=== PATIENT | female | born 1975 ===

== ENCOUNTER 2017-12-23 03:31 | Inpatient (IN) | payer MEDICAID ==
[2017-12-23] MEDS ORDERED: Sodium Chloride 0.9% 1,000 ML IV ONE (03:39)
--- NOTE | 2017-12-23 03:41 | C.PDOC ---
History Of Present Illness 42 year old female presents to the ED c/o sudden onset abdominal pain, mostly epigastric and RUQ. Patient states pain worsens with deep breathing, is associated with nausea and vomiting. Patient denies fever, chills, diarrhea, back pain. Chief Complaint (Nursing): Abdominal Pain History Per: Patient History/Exam Limitations: no limitations Onset/Duration Of Symptoms: Mins Current Symptoms Are (Timing): Still Present Severity: Moderate Location Of Pain/Discomfort: RUQ, Epigastric Radiation Of Pain To:: None Quality Of Discomfort: "Pain" Associated Symptoms: Nausea, Vomiting. denies: Fever, Chills, Diarrhea, Loss Of Appetite Exacerbating Factors: Deep Breaths Alleviating Factors: None Recent travel outside of the [place]: No Additional History Per: Patient Abnormal Vaginal Bleeding: No Past Medical History Reviewed: Historical Data, Nursing Documentation, Vital Signs Vital Signs: Last Vital Signs Temp 98.7 F 12/23/17 03:32 Pulse 98 H 12/23/17 03:32 Resp 18 12/23/17 03:32 BP 143/89 12/23/17 03:32 Pulse Ox 100 12/23/17 05:40 - Medical History PMH: No Chronic Diseases Surgical History: No Surg Hx Family History: States: Unknown Family Hx - Social History Hx Tobacco Use: No Hx Alcohol Use: No Hx Substance Use: No Review Of Systems Constitutional: Negative for: Fever, Chills Cardiovascular: Negative for: Chest Pain, Palpitations Respiratory: Negative for: Cough, Shortness of Breath Gastrointestinal: Positive for: Nausea, Vomiting, Abdominal Pain. Negative for : Diarrhea Genitourinary: Negative for: Dysuria, Hematuria Musculoskeletal: Negative for: Back Pain Skin: Negative for: Rash Physical Exam - Physical Exam Appears: Non-toxic, In Acute Distress (due to pain) Skin: Normal Color, Warm, Dry Head: Atraumatic, Normacephalic Eye(s): bilateral: Normal Inspection Oral Mucosa: Moist Neck: Normal ROM, Supple Chest: Symmetrical Cardiovascular: Rhythm Regular Respiratory: Normal Breath Sounds, No Rales, No Rhonchi, No Wheezing Gastrointestinal/Abdominal: Soft, Tenderness (RUQ and epigastrum), No Guarding, No Rebound Back: No CVA Tenderness Extremity: Normal ROM, No Tenderness, No Swelling Neurological/Psych: Oriented x3, Normal Speech Gait: Steady ED Course And Treatment - Laboratory Results Result Diagrams: 12/23/17 03:47 12/23/17 03:47 O2 Sat by Pulse Oximetry: 100 (ON RA) Pulse Ox Interpretation: Normal - CT Scan/US US abdomen Other Rad Studies (CT/US): Read By Radiologist, Radiology Report Reviewed CT/US Interpretation: EXAM: US Abdomen Limited, Right Upper Quadrant. CLINICAL HISTORY: 42 years old, female; Pain; Abdominal pain; Epigastric; Additional info : Ruq/. epigastric pain and tenderness. TECHNIQUE: Real-time ultrasound of the right upper quadrant with image documentation. COMPARISON: No relevant prior studies available. FINDINGS: Liver: Fatty infiltration of the liver. No intrahepatic bile duct dilation. Gallbladder: Stone in the decompressed gallbladder. Gallbladder wall appears prominent which may. be due to the decompressed state of the gallbladder. Common bile duct: Unremarkable as visualized. No stones. No dilation. Pancreas: Unremarkable as visualized. Right kidney: Unremarkable. No stones. No solid mass. No hydronephrosis. IMPRESSION: 1. Stone in the decompressed gallbladder. Gallbladder wall appears prominent which may be due to. the decompressed state of the gallbladder. Correlation with physical findings would be helpful to. exclude acute cholecystitis. 2. Fatty infiltration of the liver. Thank you for allowing us to participate in the care of your patient. Dictated and Authenticated by: Ottoniel Pierce MD. 12/23/2017 5:39 AM Eastern Time ([place] & [place]) Medical Decision Making Medical Decision Making: Plan: * Labs * Bentyl 20 mg IM * Pepcid 20 mg IVP * Reglan 10 mg IVP * IV fluids * UA * US abdomen Disposition Discussed With DrKerrie: Eli Ames Doctor Will See Patient In The: Hospital Counseled Patient/Family Regarding: Diagnosis - Disposition Disposition: HOSPITALIZED Disposition Time: 05:48 Condition: STABLE Forms: [facility] (Italian) - POA Present On Arrival: None - Clinical Impression Clinical Impression: Abdominal pain, Cholecystitis, acute - Scribe Statement The provider has reviewed the documentation as recorded by the Scribe Duncan Murphy All medical record entries made by the Scribe were at my direction and personally dictated by me. I have reviewed the chart and agree that the record accurately reflects my personal performance of the history, physical exam, medical decision making, and the department course for this patient. I have also personally directed, reviewed, and agree with the discharge instructions and disposition.
[2017-12-23 03:50] LABS: BASO % 0.2 % (0.0-2.0); EOS # 0.1 K/uL (0.0-0.7); EOS % 0.4 % (0.0-4.0); HEMOGLOBIN 13.9 g/dL (11.0-16.0); LYMPH # 1.2 K/uL (1.0-4.3); LYMPH % 9.1 % (20.0-40.0); MEAN CELL VOLUME 89.6 fL (81.0-99.0); MEAN CORPUSCULAR HEMOGLOBIN 30.8 pg (27.0-31.0); MEAN CORPUSCULAR HGB CONC 34.4 g/dL (33.0-37.0); MEAN PLATELET VOLUME 8.7 fL (7.2-11.7); MONO # 0.6 K/uL (0.0-0.8); NEUT # 10.9 K/uL (1.8-7.0); NEUT % 85.3 % (50.0-75.0); NRBC % 0.1 % (0.0-2.0); PLATELET COUNT 238 K/uL (130-400); RBC 4.51 Mil/uL (3.80-5.20); RED CELL DISTRIBUTION WIDTH 12.9 % (11.5-14.5); WHITE BLOOD COUNT 12.8 K/uL (4.8-10.8)
[2017-12-23 04:02] LABS: ALB/GLOB RATIO 1.3 (1.0-2.1); ALBUMIN 4.4 g/dL (3.5-5.0); ALT/SGPT 96 U/L (9-52); AST/SGOT 168 U/L (14-36); BLOOD UREA NITROGEN 16 mg/dL (7-17); CALCIUM 9.4 mg/dl (8.6-10.4); GFR NON-AFRICAN AMERICAN > 60; LIPASE 69 U/L (23-300)
[2017-12-23 04:40] LABS: SQUAMOUS EPITHIAL 7 /hpf (0-5); URINE BACTERIA RARE (<OCC); URINE BILIRUBIN NEGATIVE (NEGATIVE); URINE BLOOD NEGATIVE (NEGATIVE); URINE CLARITY Clear (Clear); URINE COLOR Yellow (YELLOW); URINE GLUCOSE (UA) NORMAL (Normal); URINE LEUKOCYTE ESTERASE NEG Leu/uL (Negative); URINE PROTEIN NEGATIVE (NEGATIVE); URINE UROBILINOGEN NORMAL mg/dL (0.2-1.0)
[2017-12-23 05:19] LABS: BANDS 2 % (0-2); LYMPHOCYTE 6 % (20-40); MONOCYTE 3 % (0-10); NEUTROPHIL 85 % (50-75); PLATELET ESTIMATE NORMAL (NORMAL); REACTIVE LYMPHOCYTES 4 % (0-0); TOTAL CELLS COUNTED 100; TOXIC GRANULATION PRESENT
[2017-12-23] MEDS ORDERED: metroNIDAZOLE IV 500 mg/100 ml 500 MG/100 ML BAG IVPB SCH (05:45)
[2017-12-23] MEDS ORDERED: Piperacillin/Tazobact 3.375 gm 100 ML IVPB STA (05:46)
[2017-12-23] MEDS ORDERED: Piperacillin/Tazobact 3.375 gm 100 ML IVPB ONE (05:56)
[2017-12-23] MEDS ORDERED: metroNIDAZOLE IV 500 mg/100 ml 500 MG/100 ML BAG ONE (05:57)
[2017-12-23] MEDS: Ciprofloxacin 400mg/200ml D5W 400 MG/200 ML BAG IVPB SCH ×2 (08:03→20:00)
[2017-12-23] MEDS: Lactated Ringer's 1,000 ML IV SCH ×2 (08:03→15:15)
--- NOTE | 2017-12-23 09:08 | US ---
Right upper quadrant abdominal ultrasound History: Right upper quadrant abdominal pain. Comparison: None available. Technique: Real-time sonography was performed through the right upper quadrant of the abdomen. Findings: Liver: 19.4 centimeters in length. Increased echogenicity of the hepatic parenchymal cortex suggestive for fatty infiltration versus hepatic parenchymal disease. Clinical correlation. Gallbladder: Cholelithiasis. Calculus measures up to 1.2 centimeters. Somewhat contracted gallbladder. Gallbladder wall appears prominent measuring up to 5 millimeters. Negative sonographic Rubio's sign. Mild prominence of the common bile duct measuring up to 5 millimeters. Limited visualization of the pancreas. Visualized aorta and IVC are preserved. Right kidney: 10.9 x 3.7 x 4.8 centimeters. No calculi or hydronephrosis. Impression: 1. Prominent liver measuring 19.4 centimeters in length. Increased echogenicity of the hepatic parenchymal cortex suggestive for fatty infiltration versus hepatic parenchymal disease. Clinical correlation. 2. Somewhat contracted gallbladder. Cholelithiasis. Gallbladder wall appears prominent measuring up to 5 millimeters. Negative sonographic Rubio's sign. Clinical correlation. If there is persistent concern for cholecystitis, consider repeat study and or correlation with nuclear medicine study. 3. Mild prominence of the common bile duct measuring up to 5 millimeters. Clinical correlation. 4. Limited visualization of the pancreas.
[2017-12-23] MEDS ORDERED: Lactated Ringer's 1,000 ML IV ONE ×3 (10:48→17:47)
--- NOTE | 2017-12-23 10:52 | CP.PCM.HP ---
<Markel Hargrove - Last Filed: 12/23/17 10:53> History of Present Illness - History of Present Illness History of Present Illness: Surgery: Dr. Ames CC: Abd Pain HPI: 42F w. no pmh presents to ED w. acute onset epigastric/RUQ pain. Pain started at 10PM last night after eating pizza. The pain is constant, described as pressure. Pt tried pepto-bismol without relief. Pt has never had this pain before. She reports N/V/D, non-bloody. Pt has no other complaints. LMP was 8/9 and described as normal. In ED pt was found to have, leukocytosis/transaminitis , and U/S findings concerning for cholecystitis. PMH: none PSH: x 3, breast augmentation, and abdominoplasty Meds: MAR reviewed ALL: PCN, ASA Social: No ETOH/tobacco/drugs Fhx: Non-contributory Present on Admission - Present on Admission Any Indicators Present on Admission: No Review of Systems - Review of Systems All systems: reviewed and no additional remarkable complaints except (HPI) Past Patient History - Past Social History Smoking Status: Never Smoked - PSYCHIATRIC Hx Substance Use: No - SURGICAL HISTORY Hx Surgeries: No Meds Allergies/Adverse Reactions: Allergies Allergy/AdvReac Type Severity Reaction Status Date / Time aspirin Allergy Verified 12/23/17 03:38 Penicillins Allergy Verified 12/23/17 03:38 Physical Exam - Constitutional Appears: Non-toxic, No Acute Distress - Head Exam Head Exam: ATRAUMATIC, NORMOCEPHALIC - Eye Exam Eye Exam: EOMI. absent: Scleral icterus - ENT Exam ENT Exam: Mucous Membranes Moist - Neck Exam Neck exam: Positive for: Full Rom - Respiratory Exam Respiratory Exam: NORMAL BREATHING PATTERN. absent: Accessory Muscle Use, Respiratory Distress - GI/Abdominal Exam GI & Abdominal Exam: Soft, Tenderness (epigastric/RUQ, +Rubio's). absent: Distended, Firm, Guarding, Rebound, Rigid - Extremities Exam Extremities exam: Negative for: calf tenderness, pedal edema - Neurological Exam Neurological exam: Alert, Oriented x3 - Psychiatric Exam Psychiatric exam: Normal Affect, Normal Mood - Skin Skin Exam: Dry, Warm Results - Vital Signs Recent Vital Signs: Last Vital Signs Temp 98.5 F 12/23/17 08:38 Pulse 86 12/23/17 08:38 Resp 20 12/23/17 08:38 BP 93/60 L 12/23/17 08:38 Pulse Ox 98 12/23/17 08:38 - Labs Result Diagrams: 12/23/17 03:47 12/23/17 03:47 Labs: Laboratory Results - last 24 hr 12/23/17 12/23/17 12/23/17 03:47 03:47 04:34 WBC 12.8 H RBC 4.51 Hgb 13.9 Hct 40.4 MCV 89.6 MCH 30.8 MCHC 34.4 RDW 12.9 Plt Count 238 MPV 8.7 Neut % (Auto) 85.3 H Lymph % (Auto) 9.1 L [place] % (Auto) 5.0 Eos % (Auto) 0.4 Baso % (Auto) 0.2 Neut # (Auto) 10.9 H Lymph # (Auto) 1.2 [place] # (Auto) 0.6 Eos # (Auto) 0.1 Baso # (Auto) 0.0 Neutrophils % (Manual) 85 H Band Neutrophils % 2 Lymphocytes % (Manual) 6 L Reactive Lymphs % 4 H Monocytes % (Manual) 3 Toxic Granulation Present Platelet Estimate Normal RBC Morphology Normal Sodium 145 Potassium 3.6 Chloride 104 Carbon Dioxide 26 Anion Gap 18 BUN 16 Creatinine 0.5 L Est GFR ( Amer) > 60 Est GFR (Non-Af Amer) > 60 Random Glucose 120 H Calcium 9.4 Total Bilirubin 1.4 H AST 168 H ALT 96 H Alkaline Phosphatase 94 Total Protein 7.8 Albumin 4.4 Globulin 3.4 Albumin/Globulin Ratio 1.3 Lipase 69 Urine Color Yellow Urine Clarity Clear Urine pH 5.0 Ur Specific [place] 1.023 Urine Protein Negative Urine Glucose (UA) Normal Urine Ketones Negative Urine Blood Negative Urine Nitrate Negative Urine Bilirubin Negative Urine Urobilinogen Normal Ur Leukocyte Esterase Neg Urine WBC (Auto) 4 Urine RBC (Auto) 1 Ur Squamous Epith Cells 7 H Urine Bacteria Rare Urine HCG, Qual 12/23/17 04:34 WBC RBC Hgb Hct MCV MCH MCHC RDW Plt Count MPV Neut % (Auto) Lymph % (Auto) [place] % (Auto) Eos % (Auto) Baso % (Auto) Neut # (Auto) Lymph # (Auto) [place] # (Auto) Eos # (Auto) Baso # (Auto) Neutrophils % (Manual) Band Neutrophils % Lymphocytes % (Manual) Reactive Lymphs % Monocytes % (Manual) Toxic Granulation Platelet Estimate RBC Morphology Sodium Potassium Chloride Carbon Dioxide Anion Gap BUN Creatinine Est GFR ( Amer) Est GFR (Non-Af Amer) Random Glucose Calcium Total Bilirubin AST ALT Alkaline Phosphatase Total Protein Albumin Globulin Albumin/Globulin Ratio Lipase Urine Color Urine Clarity Urine pH Ur Specific [place] Urine Protein Urine Glucose (UA) Urine Ketones Urine Blood Urine Nitrate Urine Bilirubin Urine Urobilinogen Ur Leukocyte Esterase Urine WBC (Auto) Urine RBC (Auto) Ur Squamous Epith Cells Urine Bacteria Urine HCG, Qual Negative - Imaging and Cardiology US - abdomen Status: Image reviewed by me, Report reviewed by me Assessment & Plan - Assessment and Plan (Free Text) Assessment: 42F w. cholecystitis -OR this afternoon for lap julia, consent in chart, risks/benefits d/w pt -NPO -IVF -cipro/flagyl -pain meds/anti-emetics -SCDs -d/w attending Zemaitis PGY4 Decision To Admit - Pt Status Changed To: Hospital Disposition Of: Inpatient - Admit Certification Admit to Inpatient:: After my assessment, the patient will require hospitalization for at least two midnights. This is because of the severity of symptoms shown, intensity of services needed, and/or the medical risk in this patient being treated as an outpatient. - InPatient: Physician Admission Certification:: Yes - . Bed Request Type: Regular <Eli Ames - Last Filed: 12/24/17 15:51> Results - Vital Signs Recent Vital Signs: Last Vital Signs Temp 98 F 12/24/17 08:00 Pulse 85 12/24/17 08:00 Resp 20 12/24/17 08:00 BP 98/63 L 12/24/17 08:00 Pulse Ox 96 12/24/17 08:00 - Labs Result Diagrams: 12/24/17 08:50 12/24/17 08:50 Labs: Laboratory Results - last 24 hr 12/24/17 12/24/17 12/24/17 07:28 08:50 08:50 WBC 8.1 RBC 3.94 Hgb 12.3 Hct 35.5 MCV 90.0 MCH 31.2 H MCHC 34.7 RDW 13.2 Plt Count 207 MPV 8.9 Neut % (Auto) 61.8 Lymph % (Auto) 31.3 [place] % (Auto) 5.8 Eos % (Auto) 0.6 Baso % (Auto) 0.5 Neut # (Auto) 5.0 Lymph # (Auto) 2.5 [place] # (Auto) 0.5 Eos # (Auto) 0.1 Baso # (Auto) 0.0 Sodium 139 Potassium 3.9 Chloride 107 Carbon Dioxide 26 Anion Gap 11 BUN 5 L Creatinine 0.6 L Est GFR ( Amer) > 60 Est GFR (Non-Af Amer) > 60 POC Glucose (mg/dL) 78 Random Glucose 87 Calcium 8.6 Total Bilirubin 2.0 H AST 189 H ALT 362 H D Alkaline Phosphatase 85 Total Protein 6.1 L Albumin 3.4 L D Globulin 2.7 Albumin/Globulin Ratio 1.3 12/24/17 11:16 WBC RBC Hgb Hct MCV MCH MCHC RDW Plt Count MPV Neut % (Auto) Lymph % (Auto) [place] % (Auto) Eos % (Auto) Baso % (Auto) Neut # (Auto) Lymph # (Auto) [place] # (Auto) Eos # (Auto) Baso # (Auto) Sodium Potassium Chloride Carbon Dioxide Anion Gap BUN Creatinine Est GFR ( Amer) Est GFR (Non-Af Amer) POC Glucose (mg/dL) 93 Random Glucose Calcium Total Bilirubin AST ALT Alkaline Phosphatase Total Protein Albumin Globulin Albumin/Globulin Ratio Assessment & Plan - Assessment and Plan (Free Text) Plan: I personally saw and examined the patient with the resident staff and agree with the above assessment and plan. I personally reviewed the available diagnostic images and imaging reports. Acute cholecystitis with obstructing stone at neck/cystic duct 1.2cm. Risks and benefits of laparoscopic cholecystectomy discussed including, but not limited to bleeding, infection, bowel injury, bile leak, bile duct injury, and VTE. All the patients questions were answered. She understands these risks and Informed consent was signed. - Date & Time Date: 12/23/17 Time: 13:15
[2017-12-23] MEDS: metroNIDAZOLE IV 500 mg/100 ml 500 MG/100 ML BAG IVPB SCH ×2 (11:22→19:35)
[2017-12-23] MEDS ORDERED: Lidocaine Hydrochloride 10 ML INJ ONE (13:57)
[2017-12-23] MEDS ORDERED: Iohexol 240 (50 ml) ONE (13:57)
[2017-12-23] MEDS ORDERED: Bupivacaine 0.25% 20 ML INJ IJ ONE (13:57)
[2017-12-23] MEDS ORDERED: Midazolam 2 MG/2 ML VIAL ONE (14:01)
[2017-12-23] MEDS ORDERED: Propofol 10 mg/ml Inj (20 ML) ONE (14:01)
[2017-12-23] MEDS ORDERED: Rocuronium 10 mg/ml (5 ml) ONE ×2 (14:03→14:30)
[2017-12-23] MEDS ORDERED: Neostigmine Methylsulfate 3mg/3ml Syringe IV ONE (15:09)
--- NOTE | 2017-12-23 16:09 | PCM.SURG1 ---
Surgeon's Initial Post Op Note - Surgeon's Notes Surgeon: Dr. Ames [facility] Aide: Dr. Colunga PGY-4 Type of Anesthesia: General Endo, Local Pre-Operative Diagnosis: Acute cholecystitis Operative Findings: cholelithiasis Post-Operative Diagnosis: Acute cholecystitis Operation Performed: Laparoscopic cholecystectomy Specimen/Specimens Removed: gallbladder Estimated Blood Loss: EBL {In ML}: 10 Blood Products Given: N/A Drains Used: No Drains Post-Op Condition: Fair Date of Surgery/Procedure: 12/23/17 Time of Surgery/Procedure: 16:09
[2017-12-23] MEDS: HYDROmorphone 0.5 mg/0.5 ml ISec IVP PRN ×3 (16:23→22:06)
[2017-12-23 19:28] VITALS: RESP 20
[2017-12-24] MEDS: metroNIDAZOLE IV 500 mg/100 ml 500 MG/100 ML BAG IVPB SCH ×4 (00:05→17:07)
[2017-12-24] MEDS: Lactated Ringer's 1,000 ML IV SCH ×2 (00:08→06:22)
[2017-12-24] MEDS: HYDROmorphone 0.5 mg/0.5 ml ISec IVP PRN ×2 (05:31→10:07)
[2017-12-24] MEDS ORDERED: Potassium Ch 20mEq in D5-1/2NS 1,000 ML IV SCH (08:45)
[2017-12-24] MEDS: Ciprofloxacin 400mg/200ml D5W 400 MG/200 ML BAG IVPB SCH ×2 (08:49→20:11)
[2017-12-24 08:58] LABS: BASO % 0.5 % (0.0-2.0); EOS # 0.1 K/uL (0.0-0.7); EOS % 0.6 % (0.0-4.0); HEMOGLOBIN 12.3 g/dL (11.0-16.0); LYMPH # 2.5 K/uL (1.0-4.3); LYMPH % 31.3 % (20.0-40.0); MEAN CORPUSCULAR HEMOGLOBIN 31.2 pg (27.0-31.0); MEAN CORPUSCULAR HGB CONC 34.7 g/dL (33.0-37.0); MEAN PLATELET VOLUME 8.9 fL (7.2-11.7); MONO # 0.5 K/uL (0.0-0.8); MONO % 5.8 % (0.0-10.0); NEUT % 61.8 % (50.0-75.0); NRBC % 0.1 % (0.0-2.0); RBC 3.94 Mil/uL (3.80-5.20); RED CELL DISTRIBUTION WIDTH 13.2 % (11.5-14.5); WHITE BLOOD COUNT 8.1 K/uL (4.8-10.8)
[2017-12-24 09:13] LABS: ALB/GLOB RATIO 1.3 (1.0-2.1); ALBUMIN 3.4 g/dL (3.5-5.0); ALT/SGPT 362 U/L (9-52); AST/SGOT 189 U/L (14-36); BLOOD UREA NITROGEN 5 mg/dL (7-17); CALCIUM 8.6 mg/dl (8.6-10.4); GFR NON-AFRICAN AMERICAN > 60
[2017-12-24] MEDS ORDERED: Gadodiamide 287 MG/ML VIAL (15ML) IV ONE (09:45)
--- NOTE | 2017-12-24 10:05 | CP.PCM.PN ---
Subjective - Date & Time of Evaluation Date of Evaluation: 12/24/17 Time of Evaluation: 07:00 - Subjective Subjective: GENERAL SURGERY PROGRESS NOTE FOR DR. CORTEZ Patient seen and examined at bedside. She reports a headache and that she is hungry. She feels nauseous but denies vomiting. Reports abdominal pain at incision sites. Pt is aware of plans for MRCP today. Objective - Vital Signs/Intake and Output Vital Signs (last 24 hours): Temp Pulse Resp BP Pulse Ox 98 F 85 20 98/63 L 96 12/24/17 08:00 12/24/17 08:00 12/24/17 08:00 12/24/17 08:00 12/24/17 08:00 Intake and Output: 12/24/17 12/24/17 06:59 18:59 Intake Total 1000 Balance 1000 - Medications Medications: Current Medications Acetaminophen (Tylenol 325mg Tab) 650 mg PO Q6 PRN PRN Reason: Headache Hydromorphone HCl (Dilaudid) 0.5 mg IVP Q4H PRN PRN Reason: Pain, moderate (4-7) Last Admin: 12/24/17 05:31 Dose: 0.5 mg Ciprofloxacin (Cipro 400mg/200ml Dsw) 400 mg in 200 mls @ 133 mls/hr IVPB Q12H SRINIVASAN PRN Reason: Protocol Last Admin: 12/24/17 08:49 Dose: 133 mls/hr Metronidazole (Flagyl) 500 mg in 100 mls @ 100 mls/hr IVPB Q6H SRINIVASAN PRN Reason: Protocol Last Admin: 12/24/17 05:10 Dose: 100 mls/hr Potassium Chloride/Dextrose/Sod Cl (Potassium Chl 20 Meq In D5-1/2ns) 1,000 mls @ 100 mls/hr IV .Q10H SRINIVASAN Ondansetron HCl (Zofran Inj) 4 mg IVP Q4H PRN PRN Reason: Nausea/Vomiting Last Admin: 12/23/17 18:12 Dose: 4 mg - Labs Labs: 12/24/17 08:50 12/24/17 08:50 - Constitutional Appears: Non-toxic, No Acute Distress - Head Exam Head Exam: ATRAUMATIC, NORMAL INSPECTION - Eye Exam Eye Exam: EOMI, Normal appearance - Respiratory Exam Respiratory Exam: NORMAL BREATHING PATTERN. absent: Respiratory Distress - Cardiovascular Exam Cardiovascular Exam: +S1, +S2 - GI/Abdominal Exam GI & Abdominal Exam: Soft, Tenderness (tender at incision sites). absent: Distended, Firm, Guarding, Rigid, Rebound Additional comments: Dermabond in place - Neurological Exam Neurological Exam: Alert, CN II-XII Intact, Oriented x3 - Psychiatric Exam Psychiatric exam: Normal Affect, Normal Mood - Skin Skin Exam: Dry, Warm Assessment and Plan - Assessment and Plan (Free Text) Assessment: 42yo F with cholecystitis, rule out choledocholithiasis s/p lap julia POD#1 - Continue NPO - Fluids switched to D5 1/2NS +20K - Added tylenol for WORLEY - Added Cepacol - MRCP this AM to evaluate for choledocholithiasis - Will need ERCP if stone found, Dr. Pastor on board - Discussed plan with Dr. Kwaku Colunga PGY-4
[2017-12-24] MEDS: Benzocaine/Menthol (Cepacol) Lozenge MT PRN (10:38)
--- NOTE | 2017-12-24 15:54 | PCM.OP ---
Operative Report - Operative Report Date of Surgery/Procedure: 12/23/17 Time of Surgery/Procedure: 14:00 Surgeon: Eli Ames md Cableman: Francine Colunga DO (PGY 4 resident) Anesthesia/Sedation: GETA; 1% lidocaine + 0.25% Marcaine mix local anesthesia Pre-Operative Diagnosis: Acute calculus cholecystitis Post-Operative Diagnosis: Acute calculus cholecystitis. Possible impacted gallstone at cytic duct/CBD junction Indication for Surgery: This is a 42-year-old female presented to ED with RUQ pain due acute onset the night before with nausea. RUQ US showed a gallstones and wall thickening, non-mobile obtructing stone in the gallbladder neck/cystic duct. Details of HPI in clinical chart. Taken to the operating room for laparoscopic cholecystectomy. Patient understands the risks and benefits of the procedure as documented in the clinic chart but specifically risk of cystic duct leak and common bile duct injury, need for open surgery and has consented to the procedure. Operative Findings: Inflamed dilated, Fluid filled gallbladder. Mildly dilated cystic duct. Critical view of safety acheived and prior to clipping or tansecting structures, an area of wall bulging in common bile duct abutting cytic duct juntion, soft but not compressible, concernicing for possible stone, immobile. Cholangiogram not performed due to degree of acute inflammation at CD and CBD juncton, with possible obstructing stone that would not be amenable to laparoscopic retrieval and would only perhaps dislodge stone distally in biliary tree. Patient will require post-op MRCP/ERCP to evaluate above bulging to rule out stone vs. tortuous ductal anatomy. Clips in place on cystic duct and cystic artery at end of case without evidence of bleeding or bile leak. Procedure/Operation Description: PROCEDURES PERFORMED: 1) Laparoscopic Cholecystectomy. . DESCRIPTION OF PROCEDURE: The patient was given a preoperative dose of Zosyn 20 minutes before the incision. SCD boots were placed for DVT prophylaxis. The patient had an orogastric tube placed in order to empty the stomach after the induction of general anesthesia. Upper and lower body warmer placed to maintain normothermia. Secure straps placed above and bleow the knees and footboard placed. Arms placed on arm boards out at 80 degress. All bony prominences were padded. A timeout was performed prior to incision. The abdomen was prepped and draped in sterile fashion. All skin incisions were made using an 11 blade scalpel after being pre-anesthetized with local anesthesia. In the infraaumbilical midline, a circumlinear incision was made and the umbilical raphe was identified and the fascia was divided between clamps at its base entering the abdomen in an open fashion. A 11-mm trocar was inserted in the abdomen and the abdomen was insufflated to 15 mmHg pressure with CO2. A 30-degree viewing scope was then inserted and the abdomen was generally inspected and there was not found to be any additional signs of pathology. In the right upper quadrant, two 5-mm ports were placed after the under direct vision and in the subxiphoid midline, an 11-mm radially dilating port was placed in the similar fashion. . There was significant inflammation in the right upper abdomen and a large dilated gallbladder fundus was identified beneath the liver edge. A laparoscopic aspiration needle was inserted into the fundus and used to aspirate 30cc of bilious fluid for decompression and allow grasping and retraction. The fundus of the gallbladder was then retracted to the right upper quadrant and the neck of the gallbladder was visualized. There were omental adhesions to the gallbladder that were taken down with a cominbation of sharp dissection and hook cautery. The peritoneal attachments from the lateral portion of the gallbladder/cystic duct junction were gently dissected and divided to open up the [place]. The [place] was then dissected up onto the liver bed posterior to the gallbladder in order to ensure that this was the cystic duct and not tenting of the common bile duct. The peritoneal attachments on the medial portion of the gallbladder going up to the side of the liver were taken and distal third of galbbladder dissected off the cystic plate. The critical view was obtained. The cystic artery and duct were sequentially then doubly clipped and ligated and the clips were inspected. . Once this was completed, the gallbladder was dissected free from the liver bed using electrocautery and placed this in an endo catch bag. This was withdrawn through the umbilical port. The abdomen was reinspected. The clips were in good position on the cystic artery and duct stumps and the abdomen was generally irrigated and drained. The ports were then removed from the abdomen and the abdomen was desufflated with air. The umbilical port was closed with [id number] 0- Vicryl suture, skin incisions closed with 4-0 Vicryl sutures, and finally dermabond applied to skin. The patient tolerated the procedure well and was extubated and stable in recovery after the procedure. . I was present throughout the entirety of the procedure. Sponge, needle and instrument counts were correct. Estimated Blood Loss: 10mL Complications: none Specimen: Gallbladder Discharge & Condition: above. Gallbladder specimen was opened on the back table and one small 8mm pgented stone found along with smaller microstones. The 1.2mm stone seen on pre-op US was not in the specimen. Because of this and the above intra-operative findings of bulging seen at the CD/CBD junction, the case was discussed with Dr. Pastor from GI to perform MRCP and possible ERCP to assess for impacted stone vs. tortuaous anatomy. MRCP to be done in am tomorrow and Dr. Pastor to see and advise further.
[2017-12-24] MEDS: Potassium Ch 20mEq in D5-1/2NS 1,000 ML IV SCH (18:53)
[2017-12-24 18:55] LABS: ALB/GLOB RATIO 1.3 (1.0-2.1); ALBUMIN 4.1 g/dL (3.5-5.0); ALT/SGPT 371 U/L (9-52); AST/SGOT 155 U/L (14-36); BLOOD UREA NITROGEN 6 mg/dL (7-17); CALCIUM 9.2 mg/dl (8.6-10.4); GFR NON-AFRICAN AMERICAN > 60
[2017-12-25] MEDS: metroNIDAZOLE IV 500 mg/100 ml 500 MG/100 ML BAG IVPB SCH ×2 (00:05→05:06)
[2017-12-25] MEDS: Benzocaine/Menthol (Cepacol) Lozenge MT PRN ×3 (00:09→05:59)
[2017-12-25 02:02] VITALS: BP 107/71; PULSE 83; TEMP 98.8; O2SAT 99
[2017-12-25] MEDS: Potassium Ch 20mEq in D5-1/2NS 1,000 ML IV SCH ×2 (03:00→10:42)
[2017-12-25] MEDS ORDERED: guaiFENesin 100 mg/5 ml Syrup UD PO STA (05:56)
[2017-12-25] MEDS: Ciprofloxacin 400mg/200ml D5W 400 MG/200 ML BAG IVPB SCH (08:12)
[2017-12-25 09:32] LABS: BASO % 0.4 % (0.0-2.0); EOS # 0.1 K/uL (0.0-0.7); EOS % 1.5 % (0.0-4.0); HEMOGLOBIN 12.4 g/dL (11.0-16.0); LYMPH # 2.5 K/uL (1.0-4.3); LYMPH % 29.1 % (20.0-40.0); MEAN CELL VOLUME 89.6 fL (81.0-99.0); MEAN CORPUSCULAR HEMOGLOBIN 30.7 pg (27.0-31.0); MEAN CORPUSCULAR HGB CONC 34.3 g/dL (33.0-37.0); MEAN PLATELET VOLUME 8.8 fL (7.2-11.7); MONO # 0.5 K/uL (0.0-0.8); MONO % 6.4 % (0.0-10.0); NEUT # 5.3 K/uL (1.8-7.0); NEUT % 62.6 % (50.0-75.0); RBC 4.04 Mil/uL (3.80-5.20); RED CELL DISTRIBUTION WIDTH 13.3 % (11.5-14.5); WHITE BLOOD COUNT 8.5 K/uL (4.8-10.8)
[2017-12-25 09:47] LABS: ALB/GLOB RATIO 1.2 (1.0-2.1); ALBUMIN 3.6 g/dL (3.5-5.0); ALT/SGPT 265 U/L (9-52); AST/SGOT 84 U/L (14-36); BLOOD UREA NITROGEN 4 mg/dL (7-17); CALCIUM 8.7 mg/dl (8.6-10.4); GFR NON-AFRICAN AMERICAN > 60
--- NOTE | 2017-12-25 15:00 | CP.PCM.DIS ---
Provider - Provider Date of Admission: 12/23/17 05:49 Attending physician: Eli Ames MD Consults: Dr. Pastor - GI Time Spent in preparation of Discharge (in minutes): 30 Diagnosis - Discharge Diagnosis (1) Cholecystitis, acute Status: Acute Hospital Course - Lab Results Lab Results: Micro Results 12/23/17 15:16 Blood Blood Culture - Preliminary NO GROWTH AFTER 24 HOURS 12/23/17 15:16 Blood Blood Culture - Preliminary NO GROWTH AFTER 24 HOURS Most Recent Lab Values WBC 8.5 K/uL (4.8-10.8) 12/25/17 09:19 RBC 4.04 Mil/uL (3.80-5.20) 12/25/17 09:19 Hgb 12.4 g/dL (11.0-16.0) 12/25/17 09:19 Hct 36.2 % (34.0-47.0) 12/25/17 09:19 MCV 89.6 fL (81.0-99.0) 12/25/17 09:19 MCH 30.7 pg (27.0-31.0) 12/25/17 09:19 MCHC 34.3 g/dL (33.0-37.0) 12/25/17 09:19 RDW 13.3 % (11.5-14.5) 12/25/17 09:19 Plt Count 226 K/uL (130-400) 12/25/17 09:19 MPV 8.8 fL (7.2-11.7) 12/25/17 09:19 Neut % (Auto) 62.6 % (50.0-75.0) 12/25/17 09:19 Lymph % (Auto) 29.1 % (20.0-40.0) 12/25/17 09:19 Davidson % (Auto) 6.4 % (0.0-10.0) 12/25/17 09:19 Eos % (Auto) 1.5 % (0.0-4.0) 12/25/17 09:19 Baso % (Auto) 0.4 % (0.0-2.0) 12/25/17 09:19 Neut # (Auto) 5.3 K/uL (1.8-7.0) 12/25/17 09:19 Lymph # (Auto) 2.5 K/uL (1.0-4.3) 12/25/17 09:19 Davidson # (Auto) 0.5 K/uL (0.0-0.8) 12/25/17 09:19 Eos # (Auto) 0.1 K/uL (0.0-0.7) 12/25/17 09:19 Baso # (Auto) 0.0 K/uL (0.0-0.2) 12/25/17 09:19 Neutrophils % (Manual) 85 % (50-75) H 12/23/17 03:47 Band Neutrophils % 2 % (0-2) 12/23/17 03:47 Lymphocytes % (Manual) 6 % (20-40) L 12/23/17 03:47 Reactive Lymphs % 4 % (0-0) H 12/23/17 03:47 Monocytes % (Manual) 3 % (0-10) 12/23/17 03:47 Toxic Granulation Present 12/23/17 03:47 Platelet Estimate Normal (NORMAL) 12/23/17 03:47 RBC Morphology Normal 12/23/17 03:47 Sodium 140 mmol/L (132-148) 12/25/17 09:19 Potassium 3.8 mmol/L (3.6-5.2) 12/25/17 09:19 Chloride 107 mmol/L (98-107) 12/25/17 09:19 Carbon Dioxide 22 mmol/L (22-30) 12/25/17 09:19 Anion Gap 15 (10-20) 12/25/17 09:19 BUN 4 mg/dL (7-17) L 12/25/17 09:19 Creatinine 0.5 mg/dL (0.7-1.2) L 12/25/17 09:19 Est GFR ( Amer) > 60 12/25/17 09:19 Est GFR (Non-Af Amer) > 60 12/25/17 09:19 POC Glucose (mg/dL) 85 mg/dL (65-110) 12/25/17 11:54 Random Glucose 108 mg/dL (65-105) H 12/25/17 09:19 Calcium 8.7 mg/dl (8.6-10.4) 12/25/17 09:19 Total Bilirubin 1.2 mg/dL (0.2-1.3) 12/25/17 09:19 AST 84 U/L (14-36) H D 12/25/17 09:19 ALT 265 U/L (9-52) H D 12/25/17 09:19 Alkaline Phosphatase 75 U/L (38-126) 12/25/17 09:19 Total Protein 6.6 g/dL (6.3-8.3) 12/25/17 09:19 Albumin 3.6 g/dL (3.5-5.0) 12/25/17 09:19 Globulin 3.0 gm/dL (2.2-3.9) 12/25/17 09:19 Albumin/Globulin Ratio 1.2 (1.0-2.1) 12/25/17 09:19 Lipase 69 U/L (23-300) 12/23/17 03:47 Urine Color Yellow (YELLOW) 12/23/17 04:34 Urine Clarity Clear (Clear) 12/23/17 04:34 Urine pH 5.0 (5.0-8.0) 12/23/17 04:34 Ur Specific [place] 1.023 (1.003-1.030) 12/23/17 04:34 Urine Protein Negative mg/dL (NEGATIVE) 12/23/17 04:34 Urine Glucose (UA) Normal mg/dL (Normal) 12/23/17 04:34 Urine Ketones Negative mg/dL (NEGATIVE) 12/23/17 04:34 Urine Blood Negative (NEGATIVE) 12/23/17 04:34 Urine Nitrate Negative (NEGATIVE) 12/23/17 04:34 Urine Bilirubin Negative (NEGATIVE) 12/23/17 04:34 Urine Urobilinogen Normal mg/dL (0.2-1.0) 12/23/17 04:34 Ur Leukocyte Esterase Neg Krystle/uL (Negative) 12/23/17 04:34 Urine WBC (Auto) 4 /hpf (0-5) 12/23/17 04:34 Urine RBC (Auto) 1 /hpf (0-3) 12/23/17 04:34 Ur Squamous Epith Cells 7 /hpf (0-5) H 12/23/17 04:34 Urine Bacteria Rare (<OCC) 12/23/17 04:34 Urine HCG, Qual Negative (NEGATIVE) 12/23/17 04:34 - Hospital Course Hospital Course: 42F presented w. RUQ pain 2/2 cholecystitis. Pt went for Lap julia. Post-op pt had elevated Tbili, likely 2/2 passed stone. However this has been trending down. Pt is currently asymptomatic. Her pain is controlled. She is tolerated diet. No N/V. She is ambulating without issue and is eager to go home. Discharge Exam - Head Exam Head Exam: ATRAUMATIC, NORMAL INSPECTION - Eye Exam Eye Exam: EOMI. absent: Scleral icterus - ENT Exam ENT Exam: Mucous Membranes Moist - Neck Exam Neck exam: Full Rom - Respiratory Exam Respiratory Exam: NORMAL BREATHING PATTERN. absent: Accessory Muscle Use, Respiratory Distress - GI/Abdominal Exam GI & Abdominal Exam: Soft. absent: Distended, Firm, Guarding, Rebound, Rigid, Tenderness Additional comments: incisions C/D/I - Neurological Exam Neurological exam: Alert, Oriented x3 - Psychiatric Exam Psychiatric exam: Normal Affect, Normal Mood Discharge Plan - Discharge Medications Prescriptions: Docusate Sodium [Colace] 50 mg PO BID #60 capsule Ibuprofen [Motrin Tab] 600 mg PO Q6 3 Days #12 tab Tramadol HCl [Ultram] 50 mg PO Q4 PRN #42 tab PRN Reason: Pain, Moderate (4-7) - Follow Up Plan Condition: STABLE Disposition: HOME/ ROUTINE Patient education suggested?: Yes Instructions: Cholecystitis (DC), Cholecystitis (GEN) Additional Instructions: Please refer to Discharge instruction hand out provided for you Call Dr. Ames's office to make and appointment in [address] Ames or come to ER for any fevers >100.4 not treated with tylenol, severe pain or nausea and vomiting, or any other concerning symptoms Referrals: Eli Ames MD [Staff Provider] -
--- NOTE | 2017-12-26 09:23 | MRI ---
Date of service: 12/24/2017 PROCEDURE: Magnetic Resonance Cholangiopancreatography HISTORY: COMPARISON: None available. TECHNIQUE: Multiplanar, multisequence MR images of the abdomen were obtained, including heavily T2 weighted MRCP images of the biliary system. Rotating maximum intensity projection images of the biliary system were generated. FINDINGS: MRCP: The common bile duct is of a normal caliber. No evidence of choledocholithiasis. No intrahepatic biliary ductal dilatation. No prominent cystic duct remnant is appreciated suggesting normal overall caliber. Surgical clips exert dephasing signal in the gallbladder fossa anteriorly. LIVER: Homogeneous nonfocal enhancement pattern seen throughout the liver without focal mass or definite intrahepatic biliary dilatation appreciated. GALLBLADDER: Postcholecystectomy with postoperative change identified in the gallbladder fossa fluid extending down the right pericolic gutter into the right lower quadrant. SPLEEN: Unremarkable. PANCREAS: Unremarkable. ADRENALS: Unremarkable. KIDNEYS: Unremarkable. AORTA: No aneurysm. ASCITES: See gallbladder section above. OTHER FINDINGS: None. IMPRESSION: No evidence to suggest biliary tree dilatation or choledocholithiasis at this time status postcholecystectomy with limited postoperative changes identified in the gallbladder fossa. Fluid extends minimally into the right pericolic gutter and into the right lower quadrant abdomen postoperatively. No overt MR pattern is identified that would explain apparent postoperative elevation in bilirubin levels. Continued clinical correlation is advised. Consider possible follow-up ERCP as clinically warranted. Findings discussed with Dr. Ames with written down and read back verification 12/24/2017, 2:31 p.m..
== END 2017-12-25 17:00 | disposition home or self-care (01) | DRG 494 ==
LOC: C.ER 03:31 → C.3T 05:49
PROVIDERS: ADMIT Surgery; ATTEND Surgery
PROC: 0FT44ZZ Resection of Gallbladder, Percutaneous Endoscopic Approach (ICD-10-PCS; principal; 2017-12-23 11:30)
DX: K80.00 Calculus of gallbladder with acute cholecystitis without obstruction (principal)